=== PATIENT | male | born 1940 | race Caucasian/White ===

== ENCOUNTER → 2016-06-12 | Outpatient (CLI) | payer OTHER | END | disposition home or self-care (01) | LOC: PCVCCLINIC 15:52 | PROVIDERS: ATTEND Nuclear Medicine Nuclear Cardiology | DX: I73.9 Peripheral vascular disease, unspecified (principal); I77.9 Disorder of arteries and arterioles, unspecified; I10 Essential (primary) hypertension; E78.00 Pure hypercholesterolemia, unspecified; M19.90 Unspecified osteoarthritis, unspecified site | CPT/HCPCS: G0463 ==

== ENCOUNTER → 2016-06-26 | Outpatient (CLI) | payer OTHER ==
[~2016-06-26] MED LIST: CLOPIDOGREL BISULFATE 75 MG TABLET ONE; DIAZEPAM 10 MG TABLET. ONE; EPTIFIBATIDE BOLUS 2,000 MCG/ML 10ML VIAL. IV ONE; FENTANYL PF 100 MCG/2 ML VIAL. ONE; HEPARIN SODIUM 5,000 UNIT/ML VIAL. ONE; IODIXANOL 270 MG/ML 100 ML VIAL. ONE; IOHEXOL 300 MG/ML 100ML VIAL. ONE; IV NORMAL SALINE 1000ML BAG 1,000 ML ONE; IV NORMAL SALINE 500ML BAG 0 ML ONE; LIDOCAINE 1% Multi-Dose 20 ML VIAL. ONE; MIDAZOLAM HCL/PF 2 MG/2 ML VIAL. ONE; hydrALAZINE 20 MG/ML VIAL. ONE
== END | disposition home or self-care (01) ==
LOC: PCVCINTER 08:45
PROVIDERS: ATTEND Nuclear Medicine Nuclear Cardiology
DX: I70.201 Unspecified atherosclerosis of native arteries of extremities, right leg (principal); I70.0 Atherosclerosis of aorta; I77.811 Abdominal aortic ectasia; I74.5 Embolism and thrombosis of iliac artery; I70.1 Atherosclerosis of renal artery
CPT/HCPCS: 36252; 37221; 75716; 76937; C1725; C1751; C1760; C1769; C1876; C1894; J0690; J1644; J2250; J3010; J7030; J0360; J1327; J7040; Q9967

== ENCOUNTER → 2016-10-09 | Outpatient (CLI) | payer OTHER ==
--- NOTE | 2016-10-09 19:08 | PCVCIMAG ---
EXAM: BILATERAL CAROTID DUPLEX INDICATION: Carotid Occlusive Disease. FINDINGS: Doppler Measurements (centimeters per second): RIGHT: Peak CCA-86, Peak ECA-152, Diastolic ICA-24, Peak ICA-138, ICA/CCA Ratio-1.6. LEFT: Peak CCA-97, Peak ECA-142, Diastolic ICA-26, Peak ICA-130, ICA/CCA Ratio-1.3. RIGHT CAROTID: The carotid bulb has mild plaque. The proximal internal carotid artery shows 40-50% stenosis. The common carotid artery shows no significant stenosis. The external carotid artery shows 50% stenosis. LEFT CAROTID: The carotid bulb has mild plaque. The proximal internal carotid artery shows 40-50% stenosis. The common carotid artery shows no significant stenosis. The external carotid artery shows 40-50% stenosis. Antegrade flow in both vertebral arteries. IMPRESSION: 40-50% stenosis of the right internal carotid artery with mild plaque. 40-50% stenosis of the left internal carotid artery with mild plaque. LOC:[place] [id number]
--- NOTE | 2016-10-09 19:16 | PCVCIMAG ---
EXAM: AORTOILIAC DUPLEX INDICATION: Peripheral arterial disease FINDINGS: AORTA: Suprarenal aorta measures maximum diameter of 2.5 cm. There is not a fusiform infrarenal aortic aneurysm. The infrarenal aorta measures maximum diameter of 2.2 cm. No aortic stenosis. RIGHT COMMON ILIAC ARTERY: Maximum diameter is 0.9 cm. 50% restenosis right common iliac artery. RIGHT EXTERNAL ILIAC ARTERY: No significant stenosis. LEFT COMMON ILIAC ARTERY: Maximum diameter is 0.9 cm. No significant stenosis. LEFT EXTERNAL ILIAC ARTERY: No significant stenosis. IMPRESSION: No abdominal aortic aneurysm. 50% restenosis right common iliac artery stent. LOC:[id number]
--- NOTE | 2016-10-09 19:18 | PCVCIMAG ---
EXAM: NONINVASIVE ARTERIAL EXAMINATION OF BOTH LOWER EXTREMITIES INCLUDING PRE AND POST EXERCISE PRESSURE MEASUREMENTS AND DOPPLER WAVEFORMS INDICATION: Peripheral Arterial Disease. Leg pain. FINDINGS: Right Brachial: 142 mm Hg. Right Dorsalis Pedis: 165 mm Hg. Right Posterior Tibial: 164 mm Hg. Right HUMPHREY = 1.15. Left Brachial: 140 mm Hg. Left Dorsalis Pedis: 152 mm Hg. Left Posterior Tibial: 157 mm Hg. Left HUMPHREY = 1.11. Post Exercise: Right Brachial 154 mm Hg. Right Dorsalis Pedis: 142 mm Hg. Left Posterior Tibial: 145 mm Hg. Right HUMPHREY = 0.92. Left HUMPHREY = 0.94. IMPRESSION: No resting ischemia in the right lower extremity. No exercise induced ischemia in the right lower extremity. No resting ischemia in the left lower extremity. No exercise induced ischemia in the left lower extremity. LOC:[id number]
== END | disposition home or self-care (01) ==
LOC: PCVCIMAG 16:00
PROVIDERS: ATTEND Nuclear Medicine Nuclear Cardiology
DX: I65.23 Occlusion and stenosis of bilateral carotid arteries (principal); I73.9 Peripheral vascular disease, unspecified; E78.00 Pure hypercholesterolemia, unspecified; I10 Essential (primary) hypertension; Z72.0 Tobacco use; Z95.828 Presence of other vascular implants and grafts
CPT/HCPCS: 93880; 93923; 93978; 93924

== ENCOUNTER → 2016-10-13 | Outpatient (CLI) | payer OTHER | END | disposition home or self-care (01) | LOC: PCVCCLINIC 16:39 | PROVIDERS: ATTEND Nuclear Medicine Nuclear Cardiology | DX: I73.9 Peripheral vascular disease, unspecified (principal); I77.89 Other specified disorders of arteries and arterioles; I10 Essential (primary) hypertension; M19.90 Unspecified osteoarthritis, unspecified site; F17.200 Nicotine dependence, unspecified, uncomplicated; E78.00 Pure hypercholesterolemia, unspecified; Z86.73 Personal history of transient ischemic attack (TIA), and cerebral infarction without residual deficits; Z96.643 Presence of artificial hip joint, bilateral; Z79.82 Long term (current) use of aspirin | CPT/HCPCS: G0463 ==

== ENCOUNTER → 2017-03-23 | Outpatient (CLI) | payer OTHER | END | disposition home or self-care (01) | LOC: PCVCIMAG 13:31 | DX: I73.9 Peripheral vascular disease, unspecified (principal); I77.9 Disorder of arteries and arterioles, unspecified; I10 Essential (primary) hypertension; E78.00 Pure hypercholesterolemia, unspecified; M79.604 Pain in right leg; I77.1 Stricture of artery; F17.200 Nicotine dependence, unspecified, uncomplicated; Z79.899 Other long term (current) drug therapy; Z79.82 Long term (current) use of aspirin | CPT/HCPCS: 93923; 93978; G0463 ==

== ENCOUNTER → 2017-10-06 | Outpatient (CLI) | payer OTHER | END | disposition home or self-care (01) | LOC: PCVCIMAG 16:00 | DX: I25.10 Atherosclerotic heart disease of native coronary artery without angina pectoris (principal); I65.23 Occlusion and stenosis of bilateral carotid arteries; I73.9 Peripheral vascular disease, unspecified | CPT/HCPCS: 93880; 93923; 93978 ==

== ENCOUNTER → 2018-05-18 | Outpatient (CLI) | payer OTHER ==
--- NOTE | 2018-05-18 12:03 | PCVCIMAG ---
EXAM: NONINVASIVE ARTERIAL EXAMINATION OF BOTH LOWER EXTREMITIES INCLUDING PRE AND POST EXERCISE PRESSURE MEASUREMENTS AND DOPPLER WAVEFORMS INDICATION: Peripheral Arterial Disease. Leg pain. FINDINGS: Right Brachial: 162 mm Hg. Right Dorsalis Pedis: 120 mm Hg. Right Posterior Tibial: 155 mm Hg. Right HUMPHREY = 0.96. Left Brachial: 153 mm Hg. Left Dorsalis Pedis: 170 mm Hg. Left Posterior Tibial: 159 mm Hg. Left HUMPHREY = 1.05. Post Exercise: Right Brachial 157 mm Hg. Right Posterior Tibial: 121 mm Hg. Left Dorsalis Pedis: 125 mm Hg. Right HUMPHREY = 0.77. Left HUMPHREY = 0.80. IMPRESSION: No resting ischemia in the right lower extremity. Mild exercise induced ischemia in the right lower extremity. No resting ischemia in the left lower extremity. Mild exercise induced ischemia in the left lower extremity. LOC:[id number]
--- NOTE | 2018-05-18 12:21 | PCVCIMAG ---
EXAM: BILATERAL CAROTID DUPLEX INDICATION: Carotid Occlusive Disease. Previous bilateral carotid endarterectomies. FINDINGS: Doppler Measurements (centimeters per second): RIGHT: Peak CCA-101, Peak ECA-157, Diastolic ICA-42, Peak ICA-153, ICA/CCA Ratio-1.5. LEFT: Peak CCA-104, Peak ECA-165, Diastolic ICA-45, Peak ICA-207, ICA/CCA Ratio-2.0. RIGHT CAROTID: The carotid bulb has mild plaque. The proximal internal carotid artery shows 50% stenosis. The common carotid artery shows no significant stenosis. The external carotid artery shows 50% stenosis. LEFT CAROTID: The carotid bulb has mild plaque. The proximal internal carotid artery shows 60% stenosis. The common carotid artery shows no significant stenosis. The external carotid artery shows 50% stenosis. Antegrade flow in both vertebral arteries. IMPRESSION: 50% stenosis of the right internal carotid artery with mild plaque. 60% stenosis of the left internal carotid artery with mild plaque. No significant change since September 2017 study. LOC:[id number]
--- NOTE | 2018-05-18 12:23 | PCVCIMAG ---
EXAM: AORTOILIAC DUPLEX INDICATION: Peripheral arterial disease FINDINGS: AORTA: Suprarenal aorta measures maximum diameter of 2.7 cm. There is not a fusiform infrarenal aortic aneurysm. The infrarenal aorta measures maximum diameter of 2.5 cm. No aortic stenosis. RIGHT COMMON ILIAC ARTERY: Maximum diameter is 1.4 cm. No significant stenosis. RIGHT EXTERNAL ILIAC ARTERY: Mild stenosis. LEFT COMMON ILIAC ARTERY: Maximum diameter is 1.1 cm. Mild stenosis. LEFT EXTERNAL ILIAC ARTERY: No significant stenosis. IMPRESSION: No abdominal aortic aneurysm. No flow limiting aortoiliac stenosis seen. LOC:[id number]
== END | disposition home or self-care (01) ==
LOC: PCVCIMAG 10:17
PROVIDERS: ATTEND Nuclear Medicine Nuclear Cardiology
DX: I65.23 Occlusion and stenosis of bilateral carotid arteries (principal); I73.9 Peripheral vascular disease, unspecified; I77.9 Disorder of arteries and arterioles, unspecified
CPT/HCPCS: 93880; 93924; 93978

== ENCOUNTER → 2018-05-20 | Outpatient (CLI) | payer OTHER | END | disposition home or self-care (01) | LOC: PCVCCLINIC 10:56 | PROVIDERS: ATTEND Nuclear Medicine Nuclear Cardiology | DX: I73.9 Peripheral vascular disease, unspecified (principal); I77.9 Disorder of arteries and arterioles, unspecified; I10 Essential (primary) hypertension; E78.00 Pure hypercholesterolemia, unspecified; M19.90 Unspecified osteoarthritis, unspecified site; Z79.899 Other long term (current) drug therapy; Z72.0 Tobacco use | CPT/HCPCS: G0463 ==

== ENCOUNTER → 2018-10-05 | Outpatient (CLI) | payer OTHER ==
[~2018-10-05] MED LIST changes: -CLOPIDOGREL BISULFATE 75 MG TABLET ONE; -DIAZEPAM 10 MG TABLET. ONE; -EPTIFIBATIDE BOLUS 2,000 MCG/ML 10ML VIAL. IV ONE; -FENTANYL PF 100 MCG/2 ML VIAL. ONE; -HEPARIN SODIUM 5,000 UNIT/ML VIAL. ONE; -IODIXANOL 270 MG/ML 100 ML VIAL. ONE; -IOHEXOL 300 MG/ML 100ML VIAL. ONE; -IV NORMAL SALINE 1000ML BAG 1,000 ML ONE; -IV NORMAL SALINE 500ML BAG 0 ML ONE; -LIDOCAINE 1% Multi-Dose 20 ML VIAL. ONE; -MIDAZOLAM HCL/PF 2 MG/2 ML VIAL. ONE; +REGADENOSON 0.4 MG/5 ML DISP.SYRIN. IV ONE; -hydrALAZINE 20 MG/ML VIAL. ONE
--- NOTE | 2018-10-05 13:10 | PCVCIMAG ---
APPROVED REPORT Imaging Protocol: Rest Tc-99m/Stress Tc-99m 1 day Study performed: 10/05/2018 10:29:32 Indication: Dyspnea Patient Location: Out-Patient Stress Nurse: Qiana Moreno RN, Brook Norris RN GA Tech:Gustavo Cadet NMSEGUNDOB Ht: 5 ft 6 in Wt: 154 lbs BSA: 1.79 m2 HR: 55 bpm BP: 162/67 mmHg BMI: 24.85 Rhythm: Sinus Bradycardia, First Degree AV Block Medical History Medical History: Age, Hyperlipidemia, HTN, PVD, CVD, DM, Smoker Medications: Amlodipine, ASA, Carvedilol, Lasix, Lisinopril, Pravastatin Allergies: No known drug allergies Exercise History: Sedentary Physical Disabilities: Hips, Back Meds Held (24 hrs): Carvedilol Resting Data Rest SPECT myocardial perfusion imaging was performed in supine position 45 minutes following the intravenous injection of 11.1 mCi of Tc-99m Sestamibi. Time of rest injection: 0945 Date: 10/05/2018 Administration Route: IV Administration Site: Left AC Pharmacologic Stress Pharmacologic stress test was performed by injecting Regadenoson 0.4 mg IV push over 10-15 seconds immediately followed by the intravenous injection of 32.6 mCi of Tc-99m Sestamibi. Time of stress injection: 1100 Date: 10/05/2018 Administration Route: IV Administration Site: Left AC Gated Stress SPECT was performed 45 minutes after stress injection. The images were gated to evaluate regional wall motion and calculate left ventricular ejection fraction. Stress Test Details Stress Test: Pharmacologic stress testing performed using 0.4 mg of regadenoson per 5 mL given IV over 10 seconds. Reason for pharmacologic stress test: Hip/Back issues. HRMax Heart Rate (APMHR): 142 bpm Resting HR: 55 bpmTarget HR (85% APMHR): 120 bpm Max HR Achieved: 69 bpm % of APMHR: 48 Recovery HR: 67 bpm BP Resting BP: 162/67 mmHg Max BP: 143/65 mmHg Recovery BP: 140/63 mmHg ECG Resting ECG: Sinus bradycardia, First degree AV block Stress ECG: Sinus Rhythm, First degree AV Block ST Change: Non-ischemic Arrhythmia: PVC's Recovery ECG: Sinus Rhythm, First degree AV Block Clinical Reason for Termination: Completed protocol Stress Symptoms: Abdominal discomfort, Dyspnea, Headache Symptoms resolved with caffeine. Study Quality Study: Good Artifact: Mild Diaphragmatic artifact Study Data Post stress, the left ventricular ejection was 77%.. SSS: 0 SRS: 0 SDS: 0 TID = 1.05. Perfusion There is a small area of mildly reduced uptake in the basal segment of the inferior wall which is seen on the stress images as well as the resting images. This area thickens and moves normally and is most consistent with attenuation artifact. Wall Motion Normal left ventricular wall motion. Nuclear Conclusion ECG Findings: non-diagnostic Clinical Findings: non-diagnostic Nuclear Findings: negative for ischemia Exercise Capacity: not assessed Left Ventricular Function: normal Risk Study: low This study is of low probability for inducible ischemia or prior infarct. Normal global and segmental LV systolic function. Artifact: Mild Diaphragmatic artifact
== END | disposition home or self-care (01) ==
LOC: PCVCIMAG 09:11
PROVIDERS: ATTEND Internal Medicine Cardiovascular Disease
DX: R06.00 Dyspnea, unspecified (principal)
CPT/HCPCS: 78452; 93017; A9500; J2785